=== PATIENT | female | born 1935 ===

== ENCOUNTER 2018-12-02 14:41 | Inpatient (IN) ==
[2018-12-02] MEDS ORDERED: *HR* FentaNYL (PF) 100 MCG/2 ML VIAL IVP ONE (15:02)
[2018-12-02] MEDS ORDERED: Ondansetron 4 MG/2 ML VIAL IVP ONE (15:02)
[2018-12-02 15:37] LABS: Bilirubin,Urine Negative (Negative); Blood,Urine Negative (Negative); Clarity,Urine Clear (Clear); Color,Urine Yellow (Yellow); Glucose,Urine (UA) Normal (Normal); Ketones,Urine Negative (Negative); Leukocyte Esterase,Urine Negative (Negative); Nitrite,Urine Negative (Negative); PH,Urine 6.5 pH Units (5.0-8.0); Protein,Urine Negative (Neg-Trace); Specific Gravity,Urine 1.012 (1.010-1.025); Urobilinogen,Urine Normal (Normal)
[2018-12-02 15:57] LABS: Alanine Aminotransferase 19 Units/L (7-52); Albumin/Globulin Ratio 1.3 (1.1-2.2); Alkaline Phosphatase 109 Units/L (34-104); Aspartate Amino Transferase 24 Units/L (13-39); BUN/Creatinine Ratio 15 (6-26); Bilirubin,Direct 0.1 mg/dL (0.0-0.2); Bilirubin,Indirect 0.7 mg/dL (0.0-1.2); Bilirubin,Total 0.8 mg/dL (0.3-1.0); Blood Urea Nitrogen 17 mg/dL (8-23); Calcium 9.7 mg/dL (8.6-10.3); Carbon Dioxide 26 mEq/L (23-29); Chloride 101 mEq/L (98-107); Globulin 3.1 g/dL (2.4-3.5); Glucose 126 mg/dL (70-105); Osmolality,Calculated 281 (280-300); Potassium 4.1 mEq/L (3.5-5.1); Sodium 134 mEq/L (136-145); Total Protein 7.1 g/dL (6.4-8.9); Troponin I < 0.03 ng/mL (< 0.04); eGFR For African Americans 54 (> 60); eGFR For Non-African Americans 45 (> 60)
[2018-12-02] MEDS ORDERED: *HR* OxyCODONE Immed Rel 5 MG TABLET PO ONE (16:41)
[2018-12-02 16:57] LABS: Basophils # 0.1 K/mcL (0.0-0.2); Basophils % 0.3 %; Eosinophils # 0.2 K/mcL (0.0-0.6); Eosinophils % 0.9 %; Hematocrit 23.7 % (35.3-44.9); Hemoglobin 8.7 g/dL (11.5-15.4); Immature Granulocytes % 4.2 % (0-4); Lymphocytes # 2.4 K/mcL (0.6-4.6); Lymphocytes % 14.9 %; Mean Corpuscular Hemoglobin 40.3 pg (28.0-33.3); Mean Corpuscular Volume 109.7 fL (83.0-100.0); Mean Platelet Volume 9.9 fL (9.4-12.4); Monocytes # 1.4 K/mcL (0.0-1.3); Monocytes % 8.8 %; Neutrophils # 11.4 K/mcL (1.6-8.9); Platelet Count 428 K/mcL (140-400); Red Blood Count 2.16 M/mcL (3.82-4.97); Red Cell Distribution Width 19.8 % (11.5-14.5); Segmented Neutrophils % 70.9 %
[2018-12-02 16:58] LABS: Mean Corpuscular HGB Conc 36.7 g/dL (31.6-35.5)
[2018-12-02] MEDS ORDERED: Naloxone 0.4 MG/ML INJ IVP PRN (17:03)
[2018-12-02] MEDS ORDERED: Dextrose Gel 15 GM/37.5 ML TUBE PO PRN ×2 (17:06)
[2018-12-02] MEDS ORDERED: D5% in Water 1,000 ML IVC PRN (17:06)
[2018-12-02] MEDS ORDERED: *HR* Dextrose 50 % in Water (Syg) 50 ML SYRINGE IVP PRN (17:06)
[2018-12-02] MEDS ORDERED: Ondansetron 4 MG/2 ML VIAL IVP PRN (17:13)
[2018-12-02 18:46] LABS: Estimated Average Glucose 91 mg/dl
[2018-12-02] MEDS ORDERED: Insulin DETEMIR 100 UNIT/ML X5UNITS SQ SCH (21:00)
[2018-12-02] MEDS: 0.9 % Sodium Chloride 1,000 ML IVC SCH (21:15)
[2018-12-02] MEDS: *HR* OxyCODONE/APAP 5/325 TABLET PO PRN (21:18)
[2018-12-03] MEDS: Insulin LISPRO 300 UNITS/3 ML VIAL SQ SCH ×5 (00:21→21:31)
[2018-12-03 03:39] LABS: Albumin 3.6 g/dL (3.5-5.7); Albumin/Globulin Ratio 1.4 (1.1-2.2); Bilirubin,Direct 0.2 mg/dL (0.0-0.2); Bilirubin,Indirect 0.9 mg/dL (0.0-1.2); Bilirubin,Total 1.1 mg/dL (0.3-1.0); Globulin 2.6 g/dL (2.4-3.5); Magnesium 1.6 mg/dL (1.6-2.6); Phosphorous 3.8 mg/dL (2.7-4.5); Total Protein 6.2 g/dL (6.4-8.9)
[2018-12-03 03:54] LABS: Basophils # 0.1 K/mcL (0.0-0.2); Basophils % 0.4 %; Eosinophils # 0.2 K/mcL (0.0-0.6); Eosinophils % 1.1 %; Hematocrit 21.7 % (35.3-44.9); Hemoglobin 7.8 g/dL (11.5-15.4); Immature Granulocytes % 2.3 % (0-4); Lymphocytes # 2.2 K/mcL (0.6-4.6); Lymphocytes % 13.7 %; Mean Corpuscular HGB Conc 35.9 g/dL (31.6-35.5); Mean Corpuscular Hemoglobin 39.8 pg (28.0-33.3); Mean Platelet Volume 9.6 fL (9.4-12.4); Monocytes # 1.5 K/mcL (0.0-1.3); Monocytes % 9.4 %; Neutrophils # 11.7 K/mcL (1.6-8.9); Platelet Count 364 K/mcL (140-400); Red Blood Count 1.96 M/mcL (3.82-4.97); Red Cell Distribution Width 19.2 % (11.5-14.5); Segmented Neutrophils % 73.1 %
[2018-12-03 04:25] LABS: Mean Corpuscular Volume 110.7 fL (83.0-100.0)
[2018-12-03 05:23] LABS: Macrocytosis Present (Not Present)
[2018-12-03 05:24] LABS: Anisocytosis 1+ (Not Present)
[2018-12-03] MEDS: Acetaminophen 325 MG TABLET PO PRN ×2 (05:24→21:16)
[2018-12-03] MEDS ORDERED: NON-FORMULARY MEDICATION 1 EACH EACH (Calcium Carbonate/Vitamin D3 [Calcium 500 + Vit D Ca PO SCH (09:00)
[2018-12-03] MEDS: Folic Acid 1 MG TABLET PO SCH (09:06)
[2018-12-03] MEDS: Cyanocobalamin (B-12) 1,000 MCG TABLET PO SCH (09:06)
[2018-12-03] MEDS: Anastrozole 1 MG TABLET PO SCH (09:06)
[2018-12-03] MEDS: Vitamin E 200 UNIT (90MG) CAPSULE PO SCH (09:06)
[2018-12-03] MEDS: *HR* OxyCODONE/APAP 5/325 TABLET PO PRN (09:07)
[2018-12-03] MEDS: Famotidine 20 MG TABLET PO SCH ×2 (09:07→21:16)
[2018-12-03] MEDS: 0.9 % Sodium Chloride 1,000 ML IVC SCH ×2 (09:08→21:21)
[2018-12-03] MEDS: Cholecalciferol (D-3) 1,000 UNIT (25MCG) TABLET PO SCH (09:25)
[2018-12-03 11:12] LABS: Hemoglobin 8.5 g/dL (11.5-15.4); Mean Corpuscular Hemoglobin 40.3 pg (28.0-33.3); Mean Corpuscular Volume 113.7 fL (83.0-100.0); Mean Platelet Volume 9.7 fL (9.4-12.4); Platelet Count 400 K/mcL (140-400); Red Blood Count 2.11 M/mcL (3.82-4.97); Red Cell Distribution Width 18.8 % (11.5-14.5); White Blood Count 14.7 K/mcL (4.3-11.1)
[2018-12-03 11:13] LABS: Mean Corpuscular HGB Conc 35.4 g/dL (31.6-35.5)
[2018-12-03] MEDS ORDERED: Isovue-370 500 ML BOTTLE IVP ONE (11:51)
[2018-12-03 12:10] LABS: Eosinophils # 0.6 K/mcL (0.0-0.6); Lymphocytes # 1.8 K/mcL (0.6-4.6); Monocytes # 1.5 K/mcL (0.0-1.3); Neutrophils # 10.9 K/mcL (1.6-8.9)
[2018-12-03 12:11] LABS: Platelet Estimate Normal (Normal)
[2018-12-03 12:24] LABS: Anisocytosis 1+ (Not Present)
[2018-12-03] MEDS: *HR* Heparin 5,000 UNIT/ML VIAL SQ SCH (17:02)
[2018-12-04] MEDS: *HR* Heparin 5,000 UNIT/ML VIAL SQ SCH ×2 (07:33→17:05)
[2018-12-04] MEDS: Vitamin E 200 UNIT (90MG) CAPSULE PO SCH (09:06)
[2018-12-04] MEDS: Famotidine 20 MG TABLET PO SCH ×2 (09:06→20:24)
[2018-12-04] MEDS: Anastrozole 1 MG TABLET PO SCH (09:06)
[2018-12-04] MEDS: Cyanocobalamin (B-12) 1,000 MCG TABLET PO SCH (09:06)
[2018-12-04] MEDS: Cholecalciferol (D-3) 1,000 UNIT (25MCG) TABLET PO SCH (09:06)
[2018-12-04] MEDS: Folic Acid 1 MG TABLET PO SCH (09:06)
[2018-12-04] MEDS: Insulin LISPRO 300 UNITS/3 ML VIAL SQ SCH ×4 (09:07→20:06)
[2018-12-04 10:16] LABS: Albumin 3.7 g/dL (3.5-5.7); Albumin/Globulin Ratio 1.3 (1.1-2.2); Bilirubin,Total 0.9 mg/dL (0.3-1.0); Globulin 2.9 g/dL (2.4-3.5); Potassium 4.2 mEq/L (3.5-5.1); Total Protein 6.6 g/dL (6.4-8.9)
[2018-12-04 12:43] LABS: Basophils # 0.1 K/mcL (0.0-0.2); Basophils % 0.5 %; Eosinophils # 0.4 K/mcL (0.0-0.6); Eosinophils % 2.4 %; Hematocrit 23.7 % (35.3-44.9); Immature Granulocytes % 1.9 % (0-4); Lymphocytes # 1.5 K/mcL (0.6-4.6); Lymphocytes % 9.6 %; Mean Corpuscular HGB Conc 33.8 g/dL (31.6-35.5); Mean Platelet Volume 9.6 fL (9.4-12.4); Monocytes # 1.5 K/mcL (0.0-1.3); Monocytes % 9.5 %; Neutrophils # 11.8 K/mcL (1.6-8.9); Platelet Count 364 K/mcL (140-400); Red Blood Count 2.16 M/mcL (3.82-4.97); Red Cell Distribution Width 14.8 % (11.5-14.5); Segmented Neutrophils % 76.1 %; White Blood Count 15.5 K/mcL (4.3-11.1)
[2018-12-04 12:45] LABS: Mean Corpuscular Volume 109.7 fL (83.0-100.0)
[2018-12-04] MEDS: 0.9 % Sodium Chloride 1,000 ML IVC SCH ×2 (15:17→19:21)
[2018-12-05] MEDS: 0.9 % Sodium Chloride 1,000 ML IVC SCH (02:46)
[2018-12-05 04:55] LABS: Hematocrit 21.7 % (35.3-44.9); Hemoglobin 7.6 g/dL (11.5-15.4); Immature Platelets 2.4 % (1.1-6.1); Mean Corpuscular Hemoglobin 39.8 pg (28.0-33.3); Mean Corpuscular Volume 113.6 fL (83.0-100.0); Mean Platelet Volume 10.3 fL (9.4-12.4); Red Blood Count 1.91 M/mcL (3.82-4.97); Red Cell Distribution Width 22.2 % (11.5-14.5); White Blood Count 16.1 K/mcL (4.3-11.1)
[2018-12-05] MEDS: *HR* Heparin 5,000 UNIT/ML VIAL SQ SCH (05:02)
[2018-12-05 06:29] LABS: BUN/Creatinine Ratio 16 (6-26); Blood Urea Nitrogen 17 mg/dL (8-23); Calcium 9.3 mg/dL (8.6-10.3); Carbon Dioxide 28 mEq/L (23-29); Chloride 105 mEq/L (98-107); Glucose 166 mg/dL (70-105); Osmolality,Calculated 287 (280-300); Potassium 4.1 mEq/L (3.5-5.1); Sodium 136 mEq/L (136-145); eGFR For African Americans > 60 (> 60); eGFR For Non-African Americans 51 (> 60)
[2018-12-05] MEDS: Insulin LISPRO 300 UNITS/3 ML VIAL SQ SCH ×2 (07:28→12:17)
[2018-12-05] MEDS: Cholecalciferol (D-3) 1,000 UNIT (25MCG) TABLET PO SCH (07:29)
[2018-12-05] MEDS: Cyanocobalamin (B-12) 1,000 MCG TABLET PO SCH (07:29)
[2018-12-05] MEDS: Famotidine 20 MG TABLET PO SCH (07:29)
[2018-12-05] MEDS: Folic Acid 1 MG TABLET PO SCH (07:29)
[2018-12-05] MEDS: Anastrozole 1 MG TABLET PO SCH (07:29)
[2018-12-05] MEDS: Vitamin E 200 UNIT (90MG) CAPSULE PO SCH (07:29)
[2018-12-05] MEDS ORDERED: Isovue-370 500 ML BOTTLE IVP ONE (09:32)
[2018-12-05 11:44] VITALS: BP 142/77
[2018-12-05] MEDS ORDERED: Aspirin 81 MG TAB.CHEW PO SCH (12:00)
== END 2018-12-05 15:28 | disposition home or self-care (01) | DRG 641 ==
LOC: 3BNU 14:41 → EMEROOARM 14:41 → SUATTDRO 18:32 → 3BNU 18:56
PROVIDERS: ADMIT Pharmacist; ATTEND Internal Medicine

== ENCOUNTER 2019-08-18 17:42 | Observation (INO) ==
[2019-08-18 19:21] LABS: BUN/Creatinine Ratio 21 (6-26); Blood Urea Nitrogen 18 mg/dL (8-23); Calcium 9.3 mg/dL (8.6-10.3); Carbon Dioxide 22 mEq/L (23-29); Chloride 103 mEq/L (98-107); Glucose 112 mg/dL (70-105); Osmolality,Calculated 287 (280-300); Potassium 5.3 mEq/L (3.5-5.1); Sodium 137 mEq/L (136-145); Troponin I < 0.03 ng/mL (< 0.04); eGFR For African Americans > 60 (> 60); eGFR For Non-African Americans > 60 (> 60)
[2019-08-18 19:32] LABS: Hematocrit 27.7 % (35.3-44.9); Hemoglobin 9.5 g/dL (11.5-15.4); Mean Corpuscular HGB Conc 34.3 g/dL (31.6-35.5); Mean Corpuscular Hemoglobin 37.1 pg (28.0-33.3); Mean Corpuscular Volume 108.2 fL (83.0-100.0); Red Blood Count 2.56 M/mcL (3.82-4.97); White Blood Count 16.6 K/mcL (4.3-11.1)
[2019-08-18 19:33] LABS: Mean Platelet Volume 10.9 fL (9.4-12.4); Platelet Count 361 K/mcL (140-400); Red Cell Distribution Width 20.1 % (11.5-14.5)
[2019-08-18 20:32] LABS: Bilirubin,Urine Negative (Negative); Blood,Urine Negative (Negative); Clarity,Urine Clear (Clear); Color,Urine Yellow (Yellow); Glucose,Urine (UA) Normal (Normal); Ketones,Urine Negative (Negative); Leukocyte Esterase,Urine Negative (Negative); Nitrite,Urine Negative (Negative); PH,Urine 6.5 pH Units (5.0-8.0); Protein,Urine 100 mg/dL (Neg-Trace); Specific Gravity,Urine 1.025 (1.010-1.025); Urobilinogen,Urine Normal (Normal)
[2019-08-18] MEDS ORDERED: 0.9 % Sodium Chloride 1,000 ML IVC ONE (21:02)
[2019-08-18 21:05] LABS: Bacteria,Urine None Seen per hpf (None-Few); RBC,Urine 0-3 per hpf (0-3); Squamous Epithelial Cell,Urine Few per lpf (None-Few); WBC,Urine 0-3 per hpf (0-3)
[2019-08-18 21:54] LABS: Creatine Kinase 34 Units/L (30-223)
[2019-08-19] MEDS ORDERED: Naloxone 0.4 MG/ML INJ IVP PRN (00:34)
[2019-08-19] MEDS ORDERED: *HR* Promethazine 25 MG/ML VIAL IVP PRN (00:34)
[2019-08-19] MEDS: *HR* Heparin 5,000 UNIT/ML VIAL SQ SCH ×3 (05:52→23:13)
[2019-08-19] MEDS: 0.9 % Sodium Chloride 1,000 ML IVC SCH ×2 (05:53→21:17)
[2019-08-19 06:58] LABS: Hematocrit 25.7 % (35.3-44.9); Hemoglobin 8.7 g/dL (11.5-15.4); Mean Corpuscular HGB Conc 33.9 g/dL (31.6-35.5); Mean Corpuscular Hemoglobin 36.1 pg (28.0-33.3); Mean Corpuscular Volume 106.6 fL (83.0-100.0); Platelet Count 365 K/mcL (140-400); Red Blood Count 2.41 M/mcL (3.82-4.97); Red Cell Distribution Width 20.5 % (11.5-14.5); White Blood Count 18.9 K/mcL (4.3-11.1)
[2019-08-19 07:01] LABS: BUN/Creatinine Ratio 17 (6-26); Blood Urea Nitrogen 15 mg/dL (8-23); Calcium 8.8 mg/dL (8.6-10.3); Carbon Dioxide 26 mEq/L (23-29); Chloride 102 mEq/L (98-107); Glucose 106 mg/dL (70-105); Magnesium 1.2 mg/dL (1.6-2.6); Osmolality,Calculated 285 (280-300); Potassium 4.1 mEq/L (3.5-5.1); Sodium 137 mEq/L (136-145); eGFR For African Americans > 60 (> 60); eGFR For Non-African Americans > 60 (> 60)
[2019-08-19] MEDS ORDERED: INSULN ASP SQ SCH (08:00)
[2019-08-19] MEDS ORDERED: INSULIN ASPART PROT SQ SCH (08:00)
[2019-08-19] MEDS: Cyanocobalamin (B-12) 1,000 MCG TABLET PO SCH (08:25)
[2019-08-19] MEDS: lisinopriL 10 MG TABLET PO SCH (08:25)
[2019-08-19] MEDS: Folic Acid 1 MG TABLET PO SCH (08:25)
[2019-08-19] MEDS: Anastrozole 1 MG TABLET PO SCH (08:25)
[2019-08-19] MEDS ORDERED: (Liraglutide [Victoza 2-Pak] 1.8 MG) SQ SCH (09:00)
[2019-08-19] MEDS ORDERED: D5% in Water 1,000 ML IVC PRN (11:46)
[2019-08-19] MEDS ORDERED: *HR* Dextrose 50 % in Water (Syg) 50 ML SYRINGE IVP PRN (11:46)
[2019-08-19] MEDS ORDERED: Dextrose Gel 15 GM/37.5 ML TUBE PO PRN ×2 (11:46)
[2019-08-19] MEDS ORDERED: Magnesium Sulfate 1 GM/102 ML PIGGYBACK IVPB ONE (12:19)
[2019-08-19] MEDS: Acetaminophen 325 MG TABLET PO PRN ×2 (16:20→21:17)
[2019-08-19] MEDS: Insulin LISPRO 300 UNITS/3 ML VIAL SQ SCH (17:59)
[2019-08-19] MEDS ORDERED: Famotidine 20 MG TABLET PO SCH (21:00)
[2019-08-20] MEDS: *HR* Heparin 5,000 UNIT/ML VIAL SQ SCH ×2 (05:44→14:20)
[2019-08-20 07:22] LABS: BUN/Creatinine Ratio 16 (6-26); Blood Urea Nitrogen 13 mg/dL (8-23); Calcium 8.9 mg/dL (8.6-10.3); Carbon Dioxide 24 mEq/L (23-29); Chloride 103 mEq/L (98-107); Glucose 202 mg/dL (70-105); Magnesium 1.6 mg/dL (1.6-2.6); Osmolality,Calculated 288 (280-300); Potassium 3.5 mEq/L (3.5-5.1); Sodium 136 mEq/L (136-145); eGFR For African Americans > 60 (> 60); eGFR For Non-African Americans > 60 (> 60)
[2019-08-20 09:12] LABS: Estimated Average Glucose 100 mg/dl
[2019-08-20] MEDS: Anastrozole 1 MG TABLET PO SCH (09:22)
[2019-08-20] MEDS: lisinopriL 10 MG TABLET PO SCH (09:22)
[2019-08-20] MEDS: Folic Acid 1 MG TABLET PO SCH (09:22)
[2019-08-20] MEDS: Cyanocobalamin (B-12) 1,000 MCG TABLET PO SCH (09:22)
[2019-08-20] MEDS: Insulin LISPRO 300 UNITS/3 ML VIAL SQ SCH ×2 (09:23→12:43)
[2019-08-20 11:17] LABS: Basophils # 0.1 K/mcL (0.0-0.2); Basophils % 0.6 %; Eosinophils # 0.2 K/mcL (0.0-0.6); Eosinophils % 1.2 %; Hematocrit 31.2 % (35.3-44.9); Hemoglobin 9.5 g/dL (11.5-15.4); Immature Granulocytes % 1.6 % (0-4); Lymphocytes % 11.4 %; Mean Corpuscular Volume 105.1 fL (83.0-100.0); Mean Platelet Volume 11.1 fL (9.4-12.4); Monocytes # 1.9 K/mcL (0.0-1.3); Monocytes % 11.3 %; Neutrophils # 12.7 K/mcL (1.6-8.9); Nucleated Red Blood Cells 0.2 /100 WBC (0); Platelet Count 367 K/mcL (140-400); Red Blood Count 2.97 M/mcL (3.82-4.97); Red Cell Distribution Width 17.7 % (11.5-14.5); Segmented Neutrophils % 73.9 %; White Blood Count 17.2 K/mcL (4.3-11.1)
[2019-08-20 11:23] LABS: Mean Corpuscular HGB Conc 30.4 g/dL (31.6-35.5)
[2019-08-20] MEDS ORDERED: lisinopriL 10 MG TABLET PO ONE (14:50)
[2019-08-20 16:42] VITALS: BP 158/79
[2019-08-21] MEDS ORDERED: lisinopriL 10 MG TABLET PO SCH (09:00)
== END 2019-08-20 17:58 | disposition other institution (70) ==
LOC: 3BNU 17:42 → EMEROOARM 17:42 → 3BNU 23:38
PROVIDERS: ADMIT Internal Medicine; ATTEND Internal Medicine

== ENCOUNTER 2019-09-26 12:18 | Observation (INO) ==
[2019-09-26 13:00] LABS: INR 1.1
[2019-09-26 13:09] LABS: Alanine Aminotransferase 25 Units/L (7-52); Albumin 4.4 g/dL (3.5-5.7); Albumin/Globulin Ratio 1.3 (1.1-2.2); Alkaline Phosphatase 111 Units/L (34-104); Aspartate Amino Transferase 38 Units/L (13-39); BUN/Creatinine Ratio 18 (6-26); Bilirubin,Total 1.8 mg/dL (0.3-1.0); Blood Urea Nitrogen 19 mg/dL (8-23); Calcium 9.1 mg/dL (8.6-10.3); Carbon Dioxide 24 mEq/L (23-29); Chloride 96 mEq/L (98-107); Globulin 3.3 g/dL (2.4-3.5); Glucose 156 mg/dL (70-105); Magnesium 1.4 mg/dL (1.6-2.6); Osmolality,Calculated 279 (280-300); Phosphorous 3.2 mg/dL (2.7-4.5); Potassium 3.9 mEq/L (3.5-5.1); Sodium 132 mEq/L (136-145); Total Protein 7.7 g/dL (6.4-8.9); Troponin I 0.03 ng/mL (< 0.04); eGFR For African Americans > 60 (> 60); eGFR For Non-African Americans 51 (> 60)
[2019-09-26 13:21] LABS: Thyroid Stimulating Hormone 4.518 mcIU/mL (0.340-5.600)
[2019-09-26 13:36] LABS: Bacteria,Urine Few per hpf (None-Few); Bilirubin,Urine Negative (Negative); Blood,Urine Negative (Negative); Clarity,Urine Clear (Clear); Color,Urine Yellow (Yellow); Glucose,Urine (UA) Normal (Normal); Ketones,Urine Negative (Negative); Leukocyte Esterase,Urine Trace (Negative); Mucus,Urine Few per lpf (None-Few); Nitrite,Urine Negative (Negative); Protein,Urine 200 mg/dL (Neg-Trace); RBC,Urine 0-3 per hpf (0-3); Specific Gravity,Urine 1.026 (1.010-1.025); Squamous Epithelial Cell,Urine Few per hpf (None-Few)
[2019-09-26 14:58] LABS: Basophils # 0.1 K/mcL (0.0-0.2); Basophils % 0.7 %; Eosinophils % 0.1 %; Hematocrit 28.3 % (35.3-44.9); Immature Granulocytes % 2.3 % (0-4); Lymphocytes # 1.4 K/mcL (0.6-4.6); Lymphocytes % 8.5 %; Mean Corpuscular Volume 100.7 fL (83.0-100.0); Mean Platelet Volume 11.1 fL (9.4-12.4); Monocytes # 2.2 K/mcL (0.0-1.3); Neutrophils # 11.9 K/mcL (1.6-8.9); Nucleated Red Blood Cells 0.2 /100 WBC (0); Platelet Count 279 K/mcL (140-400); Red Blood Count 2.81 M/mcL (3.82-4.97); Red Cell Distribution Width 16.1 % (11.5-14.5); Segmented Neutrophils % 74.4 %; White Blood Count 15.9 K/mcL (4.3-11.1)
[2019-09-26 15:03] LABS: Mean Corpuscular HGB Conc 31.8 g/dL (31.6-35.5)
[2019-09-26] MEDS ORDERED: 0.9 % Sodium Chloride 1,000 ML IVC ONE (15:08)
[2019-09-26] MEDS ORDERED: cefTRIAXone 1,000 MG in Water for inj. (sterile) 10 ML IVP ONE (15:08)
[2019-09-26] MEDS ORDERED: Acetaminophen 325 MG TABLET PO PRN (15:35)
[2019-09-26] MEDS ORDERED: Ondansetron 4 MG/2 ML VIAL IVP PRN (15:35)
[2019-09-26] MEDS: *HR* Metformin 500 MG TABLET PO SCH (18:42)
[2019-09-26] MEDS: Insulin NPH/REG 70/30 100 UNIT/ML (x5UNIT) SQ SCH (19:04)
[2019-09-27 01:12] LABS: BUN/Creatinine Ratio 20 (6-26); Blood Urea Nitrogen 20 mg/dL (8-23); Calcium 8.6 mg/dL (8.6-10.3); Carbon Dioxide 21 mEq/L (23-29); Chloride 102 mEq/L (98-107); Glucose 93 mg/dL (70-105); Magnesium 1.3 mg/dL (1.6-2.6); Osmolality,Calculated 282 (280-300); Potassium 3.6 mEq/L (3.5-5.1); Sodium 135 mEq/L (136-145); eGFR For African Americans > 60 (> 60); eGFR For Non-African Americans 54 (> 60)
[2019-09-27 03:45] LABS: Hematocrit 22.9 % (35.3-44.9); Hemoglobin 7.5 g/dL (11.5-15.4); Mean Corpuscular HGB Conc 32.8 g/dL (31.6-35.5); Mean Corpuscular Hemoglobin 34.9 pg (28.0-33.3); Platelet Count 462 K/mcL (140-400); Red Blood Count 2.15 M/mcL (3.82-4.97); Red Cell Distribution Width 17.2 % (11.5-14.5); White Blood Count 10.2 K/mcL (4.3-11.1)
[2019-09-27 03:47] LABS: Mean Corpuscular Volume 106.5 fL (83.0-100.0)
[2019-09-27] MEDS ORDERED: *HR* Enoxaparin 30 MG/0.3 ML SYRINGE SQ SCH (06:00)
[2019-09-27] MEDS: *HR* Metformin 500 MG TABLET PO SCH (08:36)
[2019-09-27] MEDS: Insulin NPH/REG 70/30 100 UNIT/ML (x5UNIT) SQ SCH (08:38)
[2019-09-27] MEDS ORDERED: cefTRIAXone 1,000 MG in Water for inj. (sterile) 10 ML IVP SCH (09:00)
[2019-09-27] MEDS ORDERED: lisinopriL 20 MG TABLET PO SCH (09:00)
[2019-09-27] MEDS ORDERED: Anastrozole 1 MG TABLET PO SCH (09:00)
[2019-09-27 10:25] VITALS: BP 116/60
== END 2019-09-27 12:46 | disposition home health service (06) ==
LOC: EMEROOARM 12:18 → 3ANU 12:18 → SUATTDRO 17:37 → 3ANU 17:45
PROVIDERS: ADMIT Internal Medicine; ATTEND Internal Medicine

== ENCOUNTER 2019-09-30 16:30 | Inpatient (IN) ==
[2019-09-30 17:29] LABS: INR 1.2; Prothrombin Time 13.9 Seconds (9.4-12.1)
[2019-09-30 17:32] LABS: Activated Partial Thrombo Time 27.3 Seconds (26.0-36.0)
[2019-09-30] MEDS ORDERED: Piperacillin/Tazobactam 3.375 GM in 0.9 % Sodium Chloride Mini Bag 100 ML IVPB ONE (17:42)
[2019-09-30] MEDS ORDERED: Azithromycin 500 MG in 0.9 % Sodium Chloride 250 ML IVPB ONE (17:44)
[2019-09-30 17:48] LABS: Alanine Aminotransferase 21 Units/L (7-52); Albumin 3.9 g/dL (3.5-5.7); Albumin/Globulin Ratio 1.3 (1.1-2.2); Alkaline Phosphatase 86 Units/L (34-104); Aspartate Amino Transferase 47 Units/L (13-39); BUN/Creatinine Ratio 18 (6-26); Bilirubin,Direct 0.3 mg/dL (0.0-0.2); Bilirubin,Indirect 0.6 mg/dL (0.0-1.0); Bilirubin,Total 0.9 mg/dL (0.3-1.0); Blood Urea Nitrogen 16 mg/dL (8-23); Calcium 8.6 mg/dL (8.6-10.3); Carbon Dioxide 24 mEq/L (23-29); Chloride 101 mEq/L (98-107); Creatine Kinase 54 Units/L (30-223); Glucose 161 mg/dL (70-105); Osmolality,Calculated 281 (280-300); Potassium 5.1 mEq/L (3.5-5.1); Sodium 133 mEq/L (136-145); Total Protein 6.9 g/dL (6.4-8.9); Troponin I 0.03 ng/mL (< 0.04); eGFR For African Americans > 60 (> 60); eGFR For Non-African Americans > 60 (> 60)
[2019-09-30 17:53] LABS: Bacteria,Urine Few per hpf (None-Few); Bilirubin,Urine Negative (Negative); Blood,Urine Trace (Negative); Clarity,Urine Clear (Clear); Color,Urine Yellow (Yellow); Glucose,Urine (UA) 50 mg/dL (Normal); Ketones,Urine Negative (Negative); Leukocyte Esterase,Urine Negative (Negative); Mucus,Urine Few per lpf (None-Few); Nitrite,Urine Negative (Negative); PH,Urine 5.5 pH Units (5.0-8.0); Protein,Urine 200 mg/dL (Neg-Trace); RBC,Urine 0-3 per hpf (0-3); Specific Gravity,Urine 1.024 (1.010-1.025); WBC,Urine 0-3 per hpf (0-3)
[2019-09-30 18:00] LABS: Thyroid Stimulating Hormone 3.663 mcIU/mL (0.340-5.600)
[2019-09-30] MEDS ORDERED: Piperacillin/Tazobactam 3.375 GM in Water for inj. (sterile) 20 ML IVP ONE (18:16)
[2019-09-30] MEDS ORDERED: Acetaminophen 325 MG TABLET PO ONE (18:28)
[2019-09-30 19:21] LABS: Adenovirus Not Detected (Not Detect); Bordetella Pertussis Not Detected (Not Detect); Chlamydophila pneumoniae Not Detected (Not Detect); Coronavirus 229E Not Detected (Not Detect); Coronavirus HKU1 Not Detected (Not Detect); Coronavirus NL63 Not Detected (Not Detect); Coronavirus OC43 Not Detected (Not Detect); Human Metapneumovirus Not Detected (Not Detect); Human Rhinovirus/Enterovirus Not Detected (Not Detect); Influenza A Subtype 2009 H1 Not Detected (Not Detect); Influenza B Not Detected (Not Detect); Mycoplasma pneumoniae Not Detected (Not Detect); Parainfluenza Virus 1 Not Detected (Not Detect); Parainfluenza Virus 2 Not Detected (Not Detect); Parainfluenza Virus 3 Not Detected (Not Detect); Parainfluenza Virus 4 Not Detected (Not Detect); Respiratory Syncytial Virus Not Detected (Not Detect)
[2019-09-30] MEDS ORDERED: 0.9 % Sodium Chloride 1,000 ML IVC SCH (19:45)
[2019-09-30] MEDS ORDERED: Naloxone 0.4 MG/ML INJ IVP PRN (19:46)
[2019-09-30 20:00] LABS: Basophils # 0.1 K/mcL (0.0-0.2); Basophils % 0.6 %; Eosinophils % 0.1 %; Hemoglobin 7.7 g/dL (11.5-15.4); Immature Granulocytes % 2.1 % (0-4); Lymphocytes # 1.6 K/mcL (0.6-4.6); Lymphocytes % 14.4 %; Mean Corpuscular HGB Conc 38.5 g/dL (31.6-35.5); Mean Corpuscular Hemoglobin 43.3 pg (28.0-33.3); Mean Corpuscular Volume 112.4 fL (83.0-100.0); Mean Platelet Volume 10.4 fL (9.4-12.4); Monocytes % 18.3 %; Neutrophils # 7.1 K/mcL (1.6-8.9); Nucleated Red Blood Cells 1.1 /100 WBC (0); Platelet Count 374 K/mcL (140-400); Red Blood Count 1.78 M/mcL (3.82-4.97); Red Cell Distribution Width 25.2 % (11.5-14.5); Segmented Neutrophils % 64.5 %
[2019-09-30] MEDS ORDERED: *HR* Dextrose 50 % in Water (Vial) 50 ML VIAL IVP PRN (20:00)
[2019-09-30] MEDS ORDERED: D5% in Water 1,000 ML IVC PRN (20:00)
[2019-09-30] MEDS ORDERED: Dextrose Gel 15 GM/37.5 ML TUBE PO PRN ×2 (20:00)
[2019-09-30 20:37] LABS: Toxic Vacuolation Present (Not Present)
[2019-09-30 20:38] LABS: Toxic Granulation Present (Not Present)
[2019-09-30 20:39] LABS: Anisocytosis 1+ (Not Present); Platelet Estimate Normal (Normal); Poikilocytosis 1+ (Not Present); Polychromasia 1+ (Not Present)
[2019-10-01] MEDS ORDERED: Insulin LISPRO 300 UNITS/3 ML VIAL SQ SCH
[2019-10-01] MEDS: Insulin LISPRO 300 UNITS/3 ML VIAL SQ SCH ×5 (01:35→21:07)
[2019-10-01] MEDS ORDERED: Piperacillin/Tazobactam 3.375 GM in 0.9 % Sodium Chloride Mini Bag 100 ML IVPB SCH (04:00)
[2019-10-01 05:22] LABS: INR 1.2; Prothrombin Time 13.6 Seconds (9.4-12.1)
[2019-10-01] MEDS: *HR* Enoxaparin 40 MG/0.4 ML SYRINGE SQ SCH ×2 (05:25→05:49)
[2019-10-01 05:37] LABS: Alanine Aminotransferase 18 Units/L (7-52); Albumin 3.5 g/dL (3.5-5.7); Albumin/Globulin Ratio 1.3 (1.1-2.2); Alkaline Phosphatase 72 Units/L (34-104); Aspartate Amino Transferase 37 Units/L (13-39); BUN/Creatinine Ratio 15 (6-26); Bilirubin,Total 0.8 mg/dL (0.3-1.0); Blood Urea Nitrogen 14 mg/dL (8-23); Carbon Dioxide 25 mEq/L (23-29); Chloride 105 mEq/L (98-107); Globulin 2.8 g/dL (2.4-3.5); Glucose 123 mg/dL (70-105); Osmolality,Calculated 284 (280-300); Potassium 4.5 mEq/L (3.5-5.1); Sodium 136 mEq/L (136-145); Total Protein 6.3 g/dL (6.4-8.9); eGFR For African Americans > 60 (> 60); eGFR For Non-African Americans 58 (> 60)
[2019-10-01 05:39] LABS: Troponin I 0.03 ng/mL (< 0.04)
[2019-10-01 05:53] LABS: Procalcitonin 0.22 ng/mL (0.00-0.15)
[2019-10-01 06:25] LABS: Basophils # 0.1 K/mcL (0.0-0.2); Basophils % 0.9 %; Eosinophils % 0.1 %; Hematocrit 20.5 % (35.3-44.9); Hemoglobin 6.8 g/dL (11.5-15.4); Immature Granulocytes % 1.6 % (0-4); Lymphocytes # 2.1 K/mcL (0.6-4.6); Lymphocytes % 23.1 %; Mean Corpuscular HGB Conc 33.2 g/dL (31.6-35.5); Mean Corpuscular Hemoglobin 35.6 pg (28.0-33.3); Mean Corpuscular Volume 107.3 fL (83.0-100.0); Mean Platelet Volume 10.2 fL (9.4-12.4); Monocytes # 1.9 K/mcL (0.0-1.3); Monocytes % 21.1 %; Neutrophils # 4.7 K/mcL (1.6-8.9); Nucleated Red Blood Cells 0.9 /100 WBC (0); Platelet Count 399 K/mcL (140-400); Red Blood Count 1.91 M/mcL (3.82-4.97); Red Cell Distribution Width 19.1 % (11.5-14.5); Segmented Neutrophils % 53.2 %; White Blood Count 8.9 K/mcL (4.3-11.1)
[2019-10-01] MEDS: Doxycycline 100 MG CAPSULE PO SCH ×2 (07:51→21:08)
[2019-10-01] MEDS ORDERED: cefTRIAXone 2,000 MG in Water for inj. (sterile) 20 ML IVP SCH (08:00)
[2019-10-01] MEDS ORDERED: Folic Acid 1 MG TABLET PO SCH (09:00)
[2019-10-01] MEDS ORDERED: cephALEXin 500 MG CAPSULE PO SCH (09:00)
[2019-10-01] MEDS ORDERED: lisinopriL 20 MG TABLET PO SCH (09:00)
[2019-10-01] MEDS ORDERED: Azithromycin 250 MG TABLET PO SCH (09:00)
[2019-10-01] MEDS: *HR* LORazepam 2 MG/ML VIAL IVP ONE ×2 (14:04→18:48)
[2019-10-01 14:29] LABS: Vitamin B12 > 1500 pg/mL (250-1100)
[2019-10-01 16:40] LABS: Bilirubin,Direct 0.2 mg/dL (0.0-0.2); Bilirubin,Indirect 0.6 mg/dL (0.0-1.0)
[2019-10-01] MEDS ORDERED: 0.9 % Sodium Chloride 250 ML ONE (17:53)
[2019-10-01] MEDS ORDERED: *HR* Heparin 5,000 UNIT/ML VIAL IVP ONE (18:01)
[2019-10-01] MEDS ORDERED: *HR* Heparin 5,000 UNIT/ML VIAL IVP PRN ×2 (18:01)
[2019-10-01] MEDS ORDERED: Heparin 25,000 UNIT/250 ML D5W 25,000 UNIT/250 ML IV.SOLN IVC SCH (18:15)
[2019-10-01] MEDS ORDERED: *HR* Metoprolol 5 MG/5 ML VIAL IVP ONE ×2 (22:00→22:12)
[2019-10-01] MEDS ORDERED: Furosemide 20 MG/2 ML VIAL IVP ONE (22:27)
[2019-10-01] MEDS ORDERED: Dexamethasone 4 MG/ML VIAL IVP ONE (22:57)
[2019-10-01] MEDS ORDERED: *HR* LORazepam 2 MG/ML VIAL IVP ONE (22:58)
[2019-10-01 23:25] LABS: INR 1.1; Prothrombin Time 12.6 Seconds (9.4-12.1)
[2019-10-02] MEDS ORDERED: *HR* LORazepam 2 MG/ML VIAL IVP ONE (02:14)
[2019-10-02 02:28] LABS: INR 1.3; Prothrombin Time 14.7 Seconds (9.4-12.1)
[2019-10-02 02:30] LABS: Activated Partial Thrombo Time 31.1 Seconds (26.0-36.0)
[2019-10-02 02:49] LABS: Calcium 8.2 mg/dL (8.6-10.3); Potassium 4.9 mEq/L (3.5-5.1)
[2019-10-02 02:50] LABS: C-Reactive Protein 62 mg/L (Less than 10)
[2019-10-02] MEDS ORDERED: *HR* Heparin 5,000 UNIT/ML VIAL IVP PRN ×3 (03:02→06:43)
[2019-10-02] MEDS ORDERED: *HR* Heparin 5,000 UNIT/ML VIAL IVP ONE (03:02)
[2019-10-02] MEDS ORDERED: Aspirin 325 MG TABLET PO ONE (03:04)
[2019-10-02 03:07] LABS: Ferritin > 1500 ng/mL (10-120)
[2019-10-02] MEDS ORDERED: Heparin 25,000 UNIT/250 ML D5W 25,000 UNIT/250 ML IV.SOLN IVC SCH ×2 (03:15→06:43)
[2019-10-02 03:26] LABS: Albumin 3.6 g/dL (3.5-5.7); Albumin/Globulin Ratio 1.2 (1.1-2.2); Bilirubin,Total 1.2 mg/dL (0.3-1.0); Calcium 8.1 mg/dL (8.6-10.3); Potassium 4.7 mEq/L (3.5-5.1); Total Protein 6.6 g/dL (6.4-8.9); Troponin I 1.58 ng/mL (< 0.04)
[2019-10-02 03:42] LABS: Mean Platelet Volume 10.8 fL (9.4-12.4); Nucleated Red Blood Cells 1.5 /100 WBC (0); Platelet Count 336 K/mcL (140-400); Red Cell Distribution Width 21.9 % (11.5-14.5); White Blood Count 29.4 K/mcL (4.3-11.1)
[2019-10-02 03:46] LABS: Mean Corpuscular Hemoglobin 31.4 pg (28.0-33.3); Mean Corpuscular Volume 98.1 fL (83.0-100.0)
[2019-10-02 03:47] LABS: Hematocrit 25.9 % (35.3-44.9); Hemoglobin 8.3 g/dL (11.5-15.4); Red Blood Count 2.64 M/mcL (3.82-4.97)
[2019-10-02 03:52] LABS: Anisocytosis 2+ (Not Present); Large Platelets Present (Not Present); Lymphocytes # 0.6 K/mcL (0.6-4.6); Macrocytosis Present (Not Present); Microcytosis Present (Not Present); Monocytes # 2.1 K/mcL (0.0-1.3); Neutrophils # 26.5 K/mcL (1.6-8.9); Platelet Estimate Normal (Normal)
[2019-10-02 03:53] LABS: Polychromasia 1+ (Not Present)
[2019-10-02] MEDS ORDERED: Perflutren Lipid Microsphere 1.3 ML in 0.9 % Sodium Chloride 8.7 ML IVP PRN (07:47)
[2019-10-02] MEDS ORDERED: Vancomycin 1 EACH in 0.9 % Sodium Chloride 250 ML IVPB PRN (08:00)
[2019-10-02] MEDS ORDERED: Piperacillin/Tazobactam 3.375 GM in 0.9 % Sodium Chloride Mini Bag 100 ML IVPB SCH (08:00)
[2019-10-02] MEDS ORDERED: Azithromycin 500 MG in 0.9 % Sodium Chloride 250 ML IVPB SCH (08:00)
[2019-10-02] MEDS ORDERED: Ergocalciferol (VIT D2) 50,000 UNIT (1.25MG) CAP PO SCH (09:00)
[2019-10-02] MEDS: Cefepime HCl 1,000 MG in Water for inj. (sterile) 10 ML IVP SCH ×2 (09:09→20:18)
[2019-10-02] MEDS: Insulin LISPRO 300 UNITS/3 ML VIAL SQ SCH ×4 (09:11→21:43)
[2019-10-02] MEDS: Dexamethasone 4 MG/ML VIAL IVP SCH (09:18)
[2019-10-02] MEDS: Heparin 25,000 UNIT/250 ML D5W 25,000 UNIT/250 ML IV.SOLN IVC SCH (11:57)
[2019-10-02] MEDS: Insulin DETEMIR 100 UNIT/ML X5UNITS SQ SCH (12:58)
[2019-10-02] MEDS: levoFLOXacin 750 MG/150 ML 750 MG/150 ML BAG IVPB SCH (14:10)
[2019-10-03] MEDS: *HR* Heparin 5,000 UNIT/ML VIAL IVP PRN (01:13)
[2019-10-03 03:53] LABS: Albumin 3.1 g/dL (3.5-5.7); Albumin/Globulin Ratio 1.1 (1.1-2.2); Bilirubin,Total 0.7 mg/dL (0.3-1.0); Calcium 7.7 mg/dL (8.6-10.3); Globulin 2.9 g/dL (2.4-3.5); Potassium 4.6 mEq/L (3.5-5.1)
[2019-10-03 04:12] LABS: Hematocrit 21.6 % (35.3-44.9); Hemoglobin 7.2 g/dL (11.5-15.4); Mean Corpuscular HGB Conc 33.3 g/dL (31.6-35.5); Mean Corpuscular Hemoglobin 34.6 pg (28.0-33.3); Mean Corpuscular Volume 103.8 fL (83.0-100.0); Mean Platelet Volume 11.1 fL (9.4-12.4); Platelet Count 315 K/mcL (140-400); Red Blood Count 2.08 M/mcL (3.82-4.97); Red Cell Distribution Width 16.4 % (11.5-14.5); White Blood Count 19.8 K/mcL (4.3-11.1)
[2019-10-03] MEDS ORDERED: 0.9 % Sodium Chloride 500 ML IVC ONE (07:39)
[2019-10-03] MEDS: Cefepime HCl 1,000 MG in Water for inj. (sterile) 10 ML IVP SCH (08:03)
[2019-10-03] MEDS: Dexamethasone 4 MG/ML VIAL IVP SCH (08:03)
[2019-10-03] MEDS: Aspirin 81 MG TAB.CHEW PO SCH (08:04)
[2019-10-03] MEDS: Anastrozole 1 MG TABLET PO SCH (08:25)
[2019-10-03] MEDS: Insulin LISPRO 300 UNITS/3 ML VIAL SQ SCH ×4 (08:25→20:46)
[2019-10-03] MEDS: Insulin DETEMIR 100 UNIT/ML X5UNITS SQ SCH (08:25)
[2019-10-03] MEDS ORDERED: Dexamethasone 4 MG/ML VIAL IVP ONE (09:28)
[2019-10-03] MEDS: Piperacillin/Tazobactam 3.375 GM in 0.9 % Sodium Chloride Mini Bag 100 ML IVPB SCH ×2 (10:36→17:55)
[2019-10-03 17:48] LABS: Heparin anti-factor XA UFH 0.37 IU/mL (0.30-0.70)
[2019-10-03] MEDS: Heparin 25,000 UNIT/250 ML D5W 25,000 UNIT/250 ML IV.SOLN IVC SCH (18:46)
[2019-10-04] MEDS: Piperacillin/Tazobactam 3.375 GM in 0.9 % Sodium Chloride Mini Bag 100 ML IVPB SCH ×3 (03:39→18:02)
[2019-10-04 05:37] LABS: Basophils # 0.1 K/mcL (0.0-0.2); Basophils % 0.2 %; Hematocrit 20.8 % (35.3-44.9); Hemoglobin 7.4 g/dL (11.5-15.4); Lymphocytes # 1.5 K/mcL (0.6-4.6); Lymphocytes % 5.4 %; Mean Corpuscular HGB Conc 35.6 g/dL (31.6-35.5); Mean Corpuscular Hemoglobin 38.5 pg (28.0-33.3); Monocytes % 7.5 %; Nucleated Red Blood Cells 2.7 /100 WBC (0); Platelet Count 395 K/mcL (140-400); Red Blood Count 1.92 M/mcL (3.82-4.97); Red Cell Distribution Width 25.8 % (11.5-14.5); Segmented Neutrophils % 83.9 %; White Blood Count 26.9 K/mcL (4.3-11.1)
[2019-10-04 05:38] LABS: Mean Corpuscular Volume 108.3 fL (83.0-100.0); Neutrophils # 22.6 K/mcL (1.6-8.9)
[2019-10-04] MEDS: Insulin LISPRO 300 UNITS/3 ML VIAL SQ SCH ×4 (07:49→20:04)
[2019-10-04] MEDS: Anastrozole 1 MG TABLET PO SCH (07:49)
[2019-10-04] MEDS: Dexamethasone 4 MG/ML VIAL IVP SCH (07:49)
[2019-10-04] MEDS: Aspirin 81 MG TAB.CHEW PO SCH (07:49)
[2019-10-04] MEDS: Acetaminophen 325 MG TABLET PO PRN (07:50)
[2019-10-04] MEDS: Insulin DETEMIR 100 UNIT/ML X5UNITS SQ SCH (07:50)
[2019-10-04] MEDS: Heparin 25,000 UNIT/250 ML D5W 25,000 UNIT/250 ML IV.SOLN IVC SCH (07:51)
[2019-10-04] MEDS: hydrALAZINE 25 MG TABLET PO SCH ×3 (08:01→23:54)
[2019-10-04 09:00] LABS: Albumin 3.3 g/dL (3.5-5.7); Albumin/Globulin Ratio 1.3 (1.1-2.2); Bilirubin,Total 1.3 mg/dL (0.3-1.0); Calcium 7.4 mg/dL (8.6-10.3); Globulin 2.6 g/dL (2.4-3.5); Potassium 3.6 mEq/L (3.5-5.1); Total Protein 5.9 g/dL (6.4-8.9)
[2019-10-04] MEDS ORDERED: Ringers Solution, Lactated 1,000 ML IVC ONE (10:24)
[2019-10-04] MEDS ORDERED: Vancomycin 1,250 MG/262.5 ML IV.SOLN IVPB ONE (10:45)
[2019-10-04] MEDS ORDERED: Aminoglycoside Consult 1 EACH MC ONE (10:58)
[2019-10-04] MEDS ORDERED: Vancomycin 1 EACH in 0.9 % Sodium Chloride 250 ML IVPB PRN (11:00)
[2019-10-04] MEDS ORDERED: 0.9 % Sodium Chloride 1,000 ML IVC ONE (11:47)
[2019-10-04] MEDS: levoFLOXacin 750 MG/150 ML 750 MG/150 ML BAG IVPB SCH (11:48)
[2019-10-04] MEDS ORDERED: 0.9 % Sodium Chloride 1,000 ML ONE (11:53)
[2019-10-04 15:19] LABS: Immature Reticulocyte % 26.3 % (11.0-38.0); Retculocyte # 0.03 M/mcL (0.05-0.10); Reticulocyte % 1.5 % (1.6-2.8)
[2019-10-04] MEDS ORDERED: *HR* LORazepam 2 MG/ML VIAL IVP ONE ×2 (18:00→20:35)
[2019-10-04] MEDS ORDERED: 0.9 % Sodium Chloride 500 ML IVC ONE (23:28)
[2019-10-05] MEDS ORDERED: *HR* Metoprolol 5 MG/5 ML VIAL IVP ONE (00:10)
[2019-10-05] MEDS ORDERED: *HR* LORazepam 2 MG/ML VIAL IVP ONE (00:28)
[2019-10-05] MEDS: *HR* Heparin 5,000 UNIT/ML VIAL IVP PRN (00:34)
[2019-10-05] MEDS: Piperacillin/Tazobactam 3.375 GM in 0.9 % Sodium Chloride Mini Bag 100 ML IVPB SCH ×3 (03:39→19:27)
[2019-10-05 04:44] LABS: Albumin 3.3 g/dL (3.5-5.7); Albumin/Globulin Ratio 1.1 (1.1-2.2); Bilirubin,Total 1.1 mg/dL (0.3-1.0); Calcium 7.6 mg/dL (8.6-10.3); Magnesium 1.4 mg/dL (1.6-2.6); Phosphorous 1.5 mg/dL (2.7-4.5); Potassium 4.3 mEq/L (3.5-5.1); Total Protein 6.3 g/dL (6.4-8.9)
[2019-10-05 05:16] LABS: Hematocrit 18.9 % (35.3-44.9); Hemoglobin 6.2 g/dL (11.5-15.4); Mean Corpuscular HGB Conc 32.8 g/dL (31.6-35.5); Mean Corpuscular Hemoglobin 34.8 pg (28.0-33.3); Mean Corpuscular Volume 106.2 fL (83.0-100.0); Mean Platelet Volume 11.1 fL (9.4-12.4); Platelet Count 335 K/mcL (140-400); Red Blood Count 1.78 M/mcL (3.82-4.97); Red Cell Distribution Width 19.3 % (11.5-14.5); White Blood Count 27.6 K/mcL (4.3-11.1)
[2019-10-05] MEDS: Insulin LISPRO 300 UNITS/3 ML VIAL SQ SCH ×4 (08:38→21:49)
[2019-10-05] MEDS: Dexmedetomidine HCl 400 MCG/100 ML MLS IVC SCH (08:40)
[2019-10-05] MEDS: Dexamethasone 4 MG/ML VIAL IVP SCH (08:47)
[2019-10-05] MEDS ORDERED: 0.9 % Sodium Chloride 500 ML ONE (08:58)
[2019-10-05] MEDS: hydrALAZINE 25 MG TABLET PO SCH (09:35)
[2019-10-05] MEDS: Aspirin 81 MG TAB.CHEW PO SCH (09:38)
[2019-10-05] MEDS: Insulin DETEMIR 100 UNIT/ML X5UNITS SQ SCH (09:41)
[2019-10-05] MEDS ORDERED: Remdesivir 200 MG in 0.9 % Sodium Chloride 210 ML IVPB SCH (18:00)
[2019-10-05] MEDS: *HR* Heparin 5,000 UNIT/ML VIAL SQ SCH (18:57)
[2019-10-06] MEDS: Dexmedetomidine HCl 400 MCG/100 ML MLS IVC SCH (01:33)
[2019-10-06] MEDS: Piperacillin/Tazobactam 3.375 GM in 0.9 % Sodium Chloride Mini Bag 100 ML IVPB SCH ×2 (02:18→15:37)
[2019-10-06 04:31] LABS: INR 1.4; Prothrombin Time 16.3 Seconds (9.4-12.1)
[2019-10-06] MEDS: *HR* Heparin 5,000 UNIT/ML VIAL SQ SCH (04:41)
[2019-10-06 04:46] LABS: Bilirubin,Total 1.2 mg/dL (0.3-1.0); Calcium 7.3 mg/dL (8.6-10.3); Potassium 3.6 mEq/L (3.5-5.1)
[2019-10-06 04:59] LABS: Magnesium 2.5 mg/dL (1.6-2.6); Phosphorous 4.6 mg/dL (2.7-4.5)
[2019-10-06 05:05] LABS: Mean Corpuscular HGB Conc 34.5 g/dL (31.6-35.5); Mean Corpuscular Hemoglobin 38.1 pg (28.0-33.3); Mean Corpuscular Volume 110.4 fL (83.0-100.0); Mean Platelet Volume 11.3 fL (9.4-12.4); Platelet Count 356 K/mcL (140-400); Red Blood Count 1.34 M/mcL (3.82-4.97); Red Cell Distribution Width 22.4 % (11.5-14.5)
[2019-10-06 05:11] LABS: Hematocrit 14.8 % (35.3-44.9); Hemoglobin 5.1 g/dL (11.5-15.4); White Blood Count 31.8 K/mcL (4.3-11.1)
[2019-10-06] MEDS: Dexamethasone 4 MG/ML VIAL IVP SCH (08:07)
[2019-10-06] MEDS: Insulin DETEMIR 100 UNIT/ML X5UNITS SQ SCH (08:09)
[2019-10-06] MEDS: Aspirin 81 MG TAB.CHEW PO SCH (08:10)
[2019-10-06 08:16] LABS: Hematocrit 16.2 % (35.3-44.9)
[2019-10-06 08:23] LABS: Hemoglobin 5.2 g/dL (11.5-15.4)
[2019-10-06] MEDS: Insulin LISPRO 300 UNITS/3 ML VIAL SQ SCH ×3 (08:32→19:24)
[2019-10-06] MEDS ORDERED: 0.9 % Sodium Chloride 250 ML IVC SCH (10:45)
[2019-10-06] MEDS: levoFLOXacin 750 MG/150 ML 750 MG/150 ML BAG IVPB SCH (11:22)
[2019-10-06 12:00] LABS: Immunoglobulin A 383 mg/dL (68-408); Immunoglobulin G 977 mg/dL (768-1632); Immunoglobulin M 123 mg/dL (35-263)
[2019-10-06] MEDS ORDERED: 0.9 % Sodium Chloride 500 ML ONE ×2 (12:38→13:45)
[2019-10-06] MEDS: Acetaminophen 325 MG TABLET PO PRN (14:40)
[2019-10-06] MEDS ORDERED: Remdesivir 100 MG in 0.9 % Sodium Chloride 230 ML IVPB SCH (18:00)
[2019-10-06 21:20] LABS: Hematocrit 22.1 % (35.3-44.9); Mean Corpuscular Hemoglobin 32.7 pg (28.0-33.3); Mean Platelet Volume 10.8 fL (9.4-12.4); Platelet Count 379 K/mcL (140-400); Red Blood Count 2.14 M/mcL (3.82-4.97); Red Cell Distribution Width 17.1 % (11.5-14.5)
[2019-10-06 21:22] LABS: Mean Corpuscular Volume 103.3 fL (83.0-100.0)
[2019-10-06 21:24] LABS: Mean Corpuscular HGB Conc 31.7 g/dL (31.6-35.5)
[2019-10-07] MEDS: Insulin LISPRO 300 UNITS/3 ML VIAL SQ SCH ×5 (04:04→20:51)
[2019-10-07] MEDS: Piperacillin/Tazobactam 3.375 GM in 0.9 % Sodium Chloride Mini Bag 100 ML IVPB SCH ×2 (04:36→16:44)
[2019-10-07 05:22] LABS: Bilirubin,Urine Negative (Negative); Blood,Urine Moderate (Negative); Clarity,Urine Turbid (Clear); Color,Urine Yellow (Yellow); Glucose,Urine (UA) Normal (Normal); Ketones,Urine Negative (Negative); Leukocyte Esterase,Urine Negative (Negative); Nitrite,Urine Negative (Negative); Protein,Urine 100 mg/dL (Neg-Trace); Specific Gravity,Urine 1.029 (1.010-1.025); Urobilinogen,Urine Normal (Normal)
[2019-10-07 05:23] LABS: INR 1.4; Prothrombin Time 16.3 Seconds (9.4-12.1)
[2019-10-07 05:36] LABS: Albumin 2.8 g/dL (3.5-5.7); Bilirubin,Total 0.9 mg/dL (0.3-1.0); Calcium 6.8 mg/dL (8.6-10.3); Globulin 2.9 g/dL (2.4-3.5); Potassium 3.8 mEq/L (3.5-5.1); Total Protein 5.7 g/dL (6.4-8.9)
[2019-10-07 05:43] LABS: RBC,Urine 0-3 per hpf (0-3)
[2019-10-07 05:44] LABS: Amorphous Sediment,Urine Many per hpf (None-Few); Bacteria,Urine None Seen per hpf (None-Few)
[2019-10-07 05:45] LABS: Hyaline Casts,Urine Few per lpf (None Seen); Squamous Epithelial Cell,Urine Few per hpf (None-Few); Uric Acid Crystals,Urine Present
[2019-10-07 06:50] LABS: Hematocrit 20.2 % (35.3-44.9); Hemoglobin 6.5 g/dL (11.5-15.4); Mean Corpuscular HGB Conc 32.2 g/dL (31.6-35.5); Mean Corpuscular Volume 105.8 fL (83.0-100.0); Mean Platelet Volume 11.2 fL (9.4-12.4); Platelet Count 413 K/mcL (140-400); Red Blood Count 1.91 M/mcL (3.82-4.97); Red Cell Distribution Width 19.6 % (11.5-14.5); White Blood Count 26.3 K/mcL (4.3-11.1)
[2019-10-07] MEDS: Dexamethasone 4 MG/ML VIAL IVP SCH (08:04)
[2019-10-07] MEDS: Insulin DETEMIR 100 UNIT/ML X5UNITS SQ SCH (08:06)
[2019-10-07] MEDS ORDERED: 0.9 % Sodium Chloride 250 ML ONE (13:48)
[2019-10-07] MEDS: Dexmedetomidine HCl 400 MCG/100 ML MLS IVC SCH ×2 (23:15)
[2019-10-08] MEDS: Piperacillin/Tazobactam 3.375 GM in 0.9 % Sodium Chloride Mini Bag 100 ML IVPB SCH ×2 (03:51→16:43)
[2019-10-08 04:00] LABS: INR 1.3; Prothrombin Time 14.3 Seconds (9.4-12.1)
[2019-10-08 04:04] LABS: Albumin 2.8 g/dL (3.5-5.7); Albumin/Globulin Ratio 0.9 (1.1-2.2); Bilirubin,Total 1.1 mg/dL (0.3-1.0); Potassium 3.8 mEq/L (3.5-5.1); Total Protein 5.8 g/dL (6.4-8.9)
[2019-10-08 04:07] LABS: Hematocrit 27.1 % (35.3-44.9); Hemoglobin 9.3 g/dL (11.5-15.4); Mean Corpuscular HGB Conc 34.3 g/dL (31.6-35.5); Mean Corpuscular Hemoglobin 35.6 pg (28.0-33.3); Mean Corpuscular Volume 103.8 fL (83.0-100.0); Platelet Count 412 K/mcL (140-400); Red Blood Count 2.61 M/mcL (3.82-4.97); Red Cell Distribution Width 21.4 % (11.5-14.5); White Blood Count 24.5 K/mcL (4.3-11.1)
[2019-10-08] MEDS: Insulin LISPRO 300 UNITS/3 ML VIAL SQ SCH ×4 (07:42→20:26)
[2019-10-08] MEDS ORDERED: 0.9 % Sodium Chloride 1,000 ML IVC SCH (07:45)
[2019-10-08] MEDS: Dexamethasone 4 MG/ML VIAL IVP SCH (08:50)
[2019-10-08] MEDS: Insulin DETEMIR 100 UNIT/ML X5UNITS SQ SCH (08:51)
[2019-10-09] MEDS: Piperacillin/Tazobactam 3.375 GM in 0.9 % Sodium Chloride Mini Bag 100 ML IVPB SCH ×3 (04:06→23:56)
[2019-10-09 04:36] LABS: Bilirubin,Total 1.2 mg/dL (0.3-1.0); Calcium 7.8 mg/dL (8.6-10.3); Globulin 3.1 g/dL (2.4-3.5); Potassium 3.5 mEq/L (3.5-5.1); Total Protein 6.1 g/dL (6.4-8.9)
[2019-10-09 04:36] LABS: INR 1.2; Prothrombin Time 13.5 Seconds (9.4-12.1)
[2019-10-09 04:45] LABS: Hematocrit 25.4 % (35.3-44.9)
[2019-10-09 04:47] LABS: Hemoglobin 9.8 g/dL (11.5-15.4); Mean Corpuscular Hemoglobin 40.8 pg (28.0-33.3); Mean Corpuscular Volume 105.8 fL (83.0-100.0); Mean Platelet Volume 10.8 fL (9.4-12.4); Platelet Count 467 K/mcL (140-400); Red Cell Distribution Width 25.3 % (11.5-14.5); White Blood Count 23.8 K/mcL (4.3-11.1)
[2019-10-09 04:53] LABS: Mean Corpuscular HGB Conc 38.6 g/dL (31.6-35.5)
[2019-10-09] MEDS: Insulin LISPRO 300 UNITS/3 ML VIAL SQ SCH ×4 (07:45→20:41)
[2019-10-09] MEDS: Dexamethasone 4 MG/ML VIAL IVP SCH (07:48)
[2019-10-09] MEDS: Insulin DETEMIR 100 UNIT/ML X5UNITS SQ SCH (07:48)
[2019-10-09] MEDS: Acetaminophen 325 MG TABLET PO PRN (08:06)
[2019-10-09] MEDS ORDERED: 0.9 % Sodium Chloride 1,000 ML IVC SCH (10:45)
[2019-10-09] MEDS: Melatonin 3 MG TABLET PO SCH (20:03)
[2019-10-09] MEDS: *HR* Metoprolol 5 MG/5 ML VIAL IVP PRN (20:48)
[2019-10-10] MEDS: *HR* Metoprolol 5 MG/5 ML VIAL IVP PRN (03:30)
[2019-10-10 03:54] LABS: INR 1.1
[2019-10-10 04:11] LABS: Albumin 2.9 g/dL (3.5-5.7); Albumin/Globulin Ratio 1.1 (1.1-2.2); Bilirubin,Total 1.5 mg/dL (0.3-1.0); Calcium 7.8 mg/dL (8.6-10.3); Globulin 2.7 g/dL (2.4-3.5); Potassium 2.9 mEq/L (3.5-5.1); Total Protein 5.6 g/dL (6.4-8.9)
[2019-10-10 05:04] LABS: Hematocrit 24.8 % (35.3-44.9); Hemoglobin 8.6 g/dL (11.5-15.4); Mean Corpuscular HGB Conc 34.7 g/dL (31.6-35.5); Mean Corpuscular Hemoglobin 35.7 pg (28.0-33.3); Mean Platelet Volume 10.7 fL (9.4-12.4); Platelet Count 436 K/mcL (140-400); Red Blood Count 2.41 M/mcL (3.82-4.97); Red Cell Distribution Width 21.9 % (11.5-14.5); White Blood Count 20.9 K/mcL (4.3-11.1)
[2019-10-10 05:07] LABS: Mean Corpuscular Volume 102.9 fL (83.0-100.0)
[2019-10-10] MEDS: Insulin LISPRO 300 UNITS/3 ML VIAL SQ SCH ×4 (08:22→20:03)
[2019-10-10] MEDS: Piperacillin/Tazobactam 3.375 GM in 0.9 % Sodium Chloride Mini Bag 100 ML IVPB SCH ×2 (09:22→17:05)
[2019-10-10] MEDS: Dexamethasone 4 MG/ML VIAL IVP SCH (09:23)
[2019-10-10] MEDS: amLODIPine 5 MG TABLET PO SCH (09:23)
[2019-10-10] MEDS: Insulin DETEMIR 100 UNIT/ML X5UNITS SQ SCH (09:25)
[2019-10-10] MEDS: Dexmedetomidine HCl 400 MCG/100 ML MLS IVC SCH (18:29)
[2019-10-10] MEDS: Melatonin 3 MG TABLET PO SCH (20:02)
[2019-10-11] MEDS: Piperacillin/Tazobactam 3.375 GM in 0.9 % Sodium Chloride Mini Bag 100 ML IVPB SCH ×4 (00:04→23:47)
[2019-10-11 02:40] LABS: INR 1.1
[2019-10-11 03:00] LABS: Albumin 2.9 g/dL (3.5-5.7); Bilirubin,Total 1.4 mg/dL (0.3-1.0); Calcium 8.6 mg/dL (8.6-10.3); Globulin 2.8 g/dL (2.4-3.5); Potassium 3.9 mEq/L (3.5-5.1); Total Protein 5.7 g/dL (6.4-8.9)
[2019-10-11 03:04] LABS: Hematocrit 22.9 % (35.3-44.9); Hemoglobin 8.3 g/dL (11.5-15.4); Mean Corpuscular HGB Conc 36.2 g/dL (31.6-35.5); Mean Corpuscular Hemoglobin 38.1 pg (28.0-33.3); Mean Platelet Volume 10.5 fL (9.4-12.4); Platelet Count 407 K/mcL (140-400); Red Blood Count 2.18 M/mcL (3.82-4.97); Red Cell Distribution Width 24.1 % (11.5-14.5)
[2019-10-11] MEDS ORDERED: *HR* LORazepam 2 MG/ML VIAL IVP STA ×2 (06:00→06:18)
[2019-10-11] MEDS ORDERED: 0.9 % Sodium Chloride 1,000 ML IVC SCH (07:45)
[2019-10-11] MEDS: Dexamethasone 4 MG/ML VIAL IVP SCH ×2 (07:50→08:59)
[2019-10-11] MEDS: amLODIPine 5 MG TABLET PO SCH (07:50)
[2019-10-11] MEDS: Insulin LISPRO 300 UNITS/3 ML VIAL SQ SCH ×4 (08:56→20:09)
[2019-10-11] MEDS: Insulin DETEMIR 100 UNIT/ML X5UNITS SQ SCH (09:00)
[2019-10-11] MEDS ORDERED: Haloperidol Lactate 5 MG/ML VIAL IVP ONE ×2 (11:35→19:43)
[2019-10-12 02:41] LABS: INR 1.2; Prothrombin Time 13.4 Seconds (9.4-12.1)
[2019-10-12 02:53] LABS: Hematocrit 23.6 % (35.3-44.9); Hemoglobin 8.4 g/dL (11.5-15.4); Mean Corpuscular HGB Conc 35.6 g/dL (31.6-35.5); Mean Corpuscular Hemoglobin 37.3 pg (28.0-33.3); Mean Corpuscular Volume 104.9 fL (83.0-100.0); Mean Platelet Volume 10.6 fL (9.4-12.4); Platelet Count 426 K/mcL (140-400); Red Blood Count 2.25 M/mcL (3.82-4.97); White Blood Count 17.9 K/mcL (4.3-11.1)
[2019-10-12 02:56] LABS: Alanine Aminotransferase 38 Units/L (7-52); Albumin 2.9 g/dL (3.5-5.7); Alkaline Phosphatase 65 Units/L (34-104); Aspartate Amino Transferase 31 Units/L (13-39); BUN/Creatinine Ratio 14 (6-26); Bilirubin,Total 1.5 mg/dL (0.3-1.0); Blood Urea Nitrogen 14 mg/dL (8-23); Calcium 8.4 mg/dL (8.6-10.3); Carbon Dioxide 24 mEq/L (23-29); Chloride 107 mEq/L (98-107); Glucose 90 mg/dL (70-105); Osmolality,Calculated 292 (280-300); Potassium 3.7 mEq/L (3.5-5.1); Sodium 141 mEq/L (136-145); Total Protein 5.9 g/dL (6.4-8.9); eGFR For African Americans > 60 (> 60); eGFR For Non-African Americans 52 (> 60)
[2019-10-12] MEDS: *HR* Metoprolol 5 MG/5 ML VIAL IVP PRN (05:36)
[2019-10-12] MEDS: Piperacillin/Tazobactam 3.375 GM in 0.9 % Sodium Chloride Mini Bag 100 ML IVPB SCH ×2 (08:28→16:43)
[2019-10-12] MEDS: amLODIPine 5 MG TABLET PO SCH (08:29)
[2019-10-12] MEDS: Insulin LISPRO 300 UNITS/3 ML VIAL SQ SCH ×4 (08:29→20:14)
[2019-10-12] MEDS: Dexamethasone 4 MG/ML VIAL IVP SCH (08:29)
[2019-10-12] MEDS: Insulin DETEMIR 100 UNIT/ML X5UNITS SQ SCH (08:55)
[2019-10-12] MEDS: lisinopriL 20 MG TABLET PO SCH (11:52)
[2019-10-13] MEDS: Piperacillin/Tazobactam 3.375 GM in 0.9 % Sodium Chloride Mini Bag 100 ML IVPB SCH (00:03)
[2019-10-13 04:47] LABS: INR 1.2; Prothrombin Time 13.2 Seconds (9.4-12.1)
[2019-10-13 04:55] LABS: Albumin 2.7 g/dL (3.5-5.7); Albumin/Globulin Ratio 0.9 (1.1-2.2); Bilirubin,Total 1.2 mg/dL (0.3-1.0); Calcium 8.7 mg/dL (8.6-10.3); Globulin 2.9 g/dL (2.4-3.5); Potassium 3.1 mEq/L (3.5-5.1); Total Protein 5.6 g/dL (6.4-8.9)
[2019-10-13 05:12] LABS: Hematocrit 23.3 % (35.3-44.9); Hemoglobin 7.4 g/dL (11.5-15.4); Mean Corpuscular HGB Conc 31.8 g/dL (31.6-35.5); Mean Corpuscular Hemoglobin 31.6 pg (28.0-33.3); Mean Corpuscular Volume 99.6 fL (83.0-100.0); Mean Platelet Volume 10.4 fL (9.4-12.4); Platelet Count 391 K/mcL (140-400); Red Blood Count 2.34 M/mcL (3.82-4.97); Red Cell Distribution Width 18.4 % (11.5-14.5); White Blood Count 13.5 K/mcL (4.3-11.1)
[2019-10-13] MEDS ORDERED: Haloperidol Lactate 5 MG/ML VIAL IVP STA ×2 (07:09→20:44)
[2019-10-13] MEDS: Insulin LISPRO 300 UNITS/3 ML VIAL SQ SCH ×4 (08:12→21:51)
[2019-10-13] MEDS: amLODIPine 5 MG TABLET PO SCH (12:56)
[2019-10-13] MEDS: lisinopriL 20 MG TABLET PO SCH (12:56)
[2019-10-13] MEDS: Insulin DETEMIR 100 UNIT/ML X5UNITS SQ SCH (12:56)
[2019-10-13 13:48] LABS: Hematocrit 24.7 % (35.3-44.9); Hemoglobin 8.2 g/dL (11.5-15.4); Mean Corpuscular HGB Conc 33.2 g/dL (31.6-35.5); Mean Corpuscular Hemoglobin 34.2 pg (28.0-33.3); Mean Platelet Volume 10.6 fL (9.4-12.4); Platelet Count 446 K/mcL (140-400); Red Cell Distribution Width 21.1 % (11.5-14.5); White Blood Count 20.3 K/mcL (4.3-11.1)
[2019-10-13 13:50] LABS: Mean Corpuscular Volume 102.9 fL (83.0-100.0)
[2019-10-14 06:04] LABS: INR 1.2; Prothrombin Time 13.1 Seconds (9.4-12.1)
[2019-10-14 06:29] LABS: Hemoglobin 7.7 g/dL (11.5-15.4); Mean Corpuscular Hemoglobin 36.5 pg (28.0-33.3); Mean Corpuscular Volume 104.3 fL (83.0-100.0); Mean Platelet Volume 11.4 fL (9.4-12.4); Platelet Count 303 K/mcL (140-400); Red Blood Count 2.11 M/mcL (3.82-4.97); Red Cell Distribution Width 24.2 % (11.5-14.5); White Blood Count 15.1 K/mcL (4.3-11.1)
[2019-10-14] MEDS: Piperacillin/Tazobactam 3.375 GM in 0.9 % Sodium Chloride Mini Bag 100 ML IVPB SCH (06:52)
[2019-10-14] MEDS: Insulin LISPRO 300 UNITS/3 ML VIAL SQ SCH ×4 (09:22→20:43)
[2019-10-14 09:23] LABS: Alanine Aminotransferase 22 Units/L (7-52); Albumin 2.9 g/dL (3.5-5.7); Albumin/Globulin Ratio 0.9 (1.1-2.2); Alkaline Phosphatase 71 Units/L (34-104); Aspartate Amino Transferase 28 Units/L (13-39); BUN/Creatinine Ratio 19 (6-26); Blood Urea Nitrogen 18 mg/dL (8-23); Calcium 8.8 mg/dL (8.6-10.3); Carbon Dioxide 27 mEq/L (23-29); Chloride 105 mEq/L (98-107); Globulin 3.2 g/dL (2.4-3.5); Glucose 78 mg/dL (70-105); Osmolality,Calculated 287 (280-300); Potassium 4.7 mEq/L (3.5-5.1); Sodium 138 mEq/L (136-145); Total Protein 6.1 g/dL (6.4-8.9); eGFR For African Americans > 60 (> 60); eGFR For Non-African Americans 55 (> 60)
[2019-10-14] MEDS: Insulin DETEMIR 100 UNIT/ML X5UNITS SQ SCH (09:25)
[2019-10-14] MEDS: lisinopriL 20 MG TABLET PO SCH (09:25)
[2019-10-14] MEDS: amLODIPine 5 MG TABLET PO SCH (09:25)
[2019-10-14] MEDS ORDERED: amLODIPine 5 MG TABLET PO ONE (11:47)
[2019-10-14] MEDS ORDERED: *HR* Labetalol 20 MG/4 ML SYRINGE IVP PRN (11:48)
[2019-10-15] MEDS ORDERED: Melatonin 3 MG TABLET PO PRN (00:12)
[2019-10-15 05:46] LABS: INR 1.2; Prothrombin Time 13.2 Seconds (9.4-12.1)
[2019-10-15 06:01] LABS: Alanine Aminotransferase 17 Units/L (7-52); Albumin 2.9 g/dL (3.5-5.7); Alkaline Phosphatase 67 Units/L (34-104); Aspartate Amino Transferase 19 Units/L (13-39); BUN/Creatinine Ratio 18 (6-26); Bilirubin,Total 0.8 mg/dL (0.3-1.0); Blood Urea Nitrogen 19 mg/dL (8-23); Calcium 8.8 mg/dL (8.6-10.3); Carbon Dioxide 29 mEq/L (23-29); Chloride 104 mEq/L (98-107); Glucose 92 mg/dL (70-105); Osmolality,Calculated 290 (280-300); Potassium 3.8 mEq/L (3.5-5.1); Sodium 139 mEq/L (136-145); Total Protein 5.9 g/dL (6.4-8.9); eGFR For African Americans > 60 (> 60); eGFR For Non-African Americans 51 (> 60)
[2019-10-15 06:34] LABS: Hematocrit 20.6 % (35.3-44.9); Hemoglobin 7.1 g/dL (11.5-15.4); Mean Corpuscular HGB Conc 34.5 g/dL (31.6-35.5); Mean Corpuscular Hemoglobin 36.2 pg (28.0-33.3); Mean Corpuscular Volume 105.1 fL (83.0-100.0); Mean Platelet Volume 10.5 fL (9.4-12.4); Platelet Count 437 K/mcL (140-400); Red Blood Count 1.96 M/mcL (3.82-4.97); Red Cell Distribution Width 23.2 % (11.5-14.5); White Blood Count 15.5 K/mcL (4.3-11.1)
[2019-10-15] MEDS: Insulin LISPRO 300 UNITS/3 ML VIAL SQ SCH ×2 (07:48→12:02)
[2019-10-15] MEDS: lisinopriL 20 MG TABLET PO SCH (07:48)
[2019-10-15] MEDS: Insulin DETEMIR 100 UNIT/ML X5UNITS SQ SCH (07:48)
[2019-10-15] MEDS ORDERED: amLODIPine 5 MG TABLET PO SCH (09:00)
[2019-10-15 11:48] VITALS: BP 140/63
[2019-10-16] MEDS ORDERED: Insulin DETEMIR 100 UNIT/ML X5UNITS SQ SCH (09:00)
== END 2019-10-15 17:07 | DRG 871 ==
LOC: 2NENU 16:30 → EMEROOARM 16:30 → 2NENU 20:25 → SUATTDRO 10-01 14:16
PROVIDERS: ADMIT Internal Medicine; ATTEND Student in an Organized Health Care Education/Training Program

== ENCOUNTER 2019-10-26 00:25 | Inpatient (IN) ==
[2019-10-26 01:44] LABS: Activated Partial Thrombo Time 29.7 Seconds (26.0-36.0)
[2019-10-26 02:07] LABS: Alanine Aminotransferase 12 Units/L (7-52); Albumin/Globulin Ratio 0.7 (1.1-2.2); Alkaline Phosphatase 81 Units/L (34-104); Aspartate Amino Transferase 29 Units/L (13-39); BUN/Creatinine Ratio 17 (6-26); Bilirubin,Total 0.7 mg/dL (0.3-1.0); Blood Urea Nitrogen 18 mg/dL (8-23); Calcium 8.2 mg/dL (8.6-10.3); Carbon Dioxide 24 mEq/L (23-29); Chloride 104 mEq/L (98-107); Globulin 4.1 g/dL (2.4-3.5); Glucose 71 mg/dL (70-105); Osmolality,Calculated 286 (280-300); Potassium 5.4 mEq/L (3.5-5.1); Sodium 138 mEq/L (136-145); Total Protein 7.1 g/dL (6.4-8.9); eGFR For African Americans > 60 (> 60); eGFR For Non-African Americans 50 (> 60)
[2019-10-26 02:08] LABS: Troponin I 0.09 ng/mL (< 0.04)
[2019-10-26] MEDS ORDERED: Isovue-370 500 ML BOTTLE IVP ONE (02:08)
[2019-10-26 02:10] LABS: Basophils # 0.1 K/mcL (0.0-0.2); Basophils % 0.3 %; Eosinophils # 0.1 K/mcL (0.0-0.6); Eosinophils % 0.4 %; Hematocrit 19.7 % (35.3-44.9); Hemoglobin 8.2 g/dL (11.5-15.4); Immature Granulocytes % 1.2 % (0-4); Lymphocytes # 0.6 K/mcL (0.6-4.6); Lymphocytes % 3.2 %; Mean Corpuscular HGB Conc 41.6 g/dL (31.6-35.5); Mean Corpuscular Hemoglobin 45.6 pg (28.0-33.3); Mean Corpuscular Volume 109.4 fL (83.0-100.0); Mean Platelet Volume 10.2 fL (9.4-12.4); Monocytes # 1.1 K/mcL (0.0-1.3); Monocytes % 5.8 %; Neutrophils # 16.2 K/mcL (1.6-8.9); Platelet Count 407 K/mcL (140-400); Red Cell Distribution Width 29.2 % (11.5-14.5); Segmented Neutrophils % 89.1 %; White Blood Count 18.2 K/mcL (4.3-11.1)
[2019-10-26] MEDS ORDERED: Piperacillin/Tazobactam 3.375 GM in Water for inj. (sterile) 20 ML IVP ONE (03:54)
[2019-10-26 04:09] LABS: ABG Base Excess 3 mEq/L (-2 to 3); ABG HCO3 26 mEq/L (21-27); ABG Oxygen Saturation 97 % (95-98); ABG PCO2 33 mmHg (35-45); ABG PO2 81 mmHg (85-104); ABG TCO2 27 mEq/L (20-26)
[2019-10-26 04:09] LABS: Ferritin 618 ng/mL (10-120)
[2019-10-26] MEDS ORDERED: Naloxone 0.4 MG/ML INJ IVP PRN (04:55)
[2019-10-26] MEDS: Dexamethasone 4 MG/ML VIAL IVP SCH ×2 (06:22→09:26)
[2019-10-26] MEDS ORDERED: D5% in Water 1,000 ML IVC PRN (06:46)
[2019-10-26] MEDS ORDERED: Dextrose Gel 15 GM/37.5 ML TUBE PO PRN ×2 (06:46)
[2019-10-26] MEDS ORDERED: *HR* Dextrose 50 % in Water (Vial) 50 ML VIAL IVP PRN (06:46)
[2019-10-26 06:51] LABS: Bacteria,Urine Few per hpf (None-Few); Bilirubin,Urine Negative (Negative); Blood,Urine Negative (Negative); Clarity,Urine Clear (Clear); Color,Urine Light-Yellow (Yellow); Glucose,Urine (UA) Normal (Normal); Ketones,Urine Negative (Negative); Leukocyte Esterase,Urine Small (Negative); Mucus,Urine Few per lpf (None-Few); Nitrite,Urine Negative (Negative); Protein,Urine 70 mg/dL (Neg-Trace); Specific Gravity,Urine > 1.030 (1.010-1.025); Squamous Epithelial Cell,Urine Few per hpf (None-Few); Urobilinogen,Urine Normal (Normal)
[2019-10-26] MEDS: Insulin LISPRO 300 UNITS/3 ML VIAL SQ SCH ×4 (09:32→21:20)
[2019-10-26] MEDS: Piperacillin/Tazobactam 3.375 GM in 0.9 % Sodium Chloride Mini Bag 100 ML IVPB SCH ×2 (09:32→16:59)
[2019-10-26 10:27] LABS: Magnesium 1.4 mg/dL (1.6-2.6); Phosphorous 3.2 mg/dL (2.7-4.5); Potassium 4.2 mEq/L (3.5-5.1)
[2019-10-26 10:34] LABS: Troponin I 0.05 ng/mL (< 0.04)
[2019-10-26] MEDS ORDERED: Furosemide 20 MG/2 ML VIAL IVP ONE (11:19)
[2019-10-26] MEDS ORDERED: *HR* Enoxaparin 40 MG/0.4 ML SYRINGE SQ SCH ×2 (11:30→18:00)
[2019-10-26 12:19] LABS: Basophils % 0.2 %; Immature Granulocytes % 1.2 % (0-4); Lymphocytes # 0.5 K/mcL (0.6-4.6); Lymphocytes % 3.4 %; Mean Platelet Volume 10.2 fL (9.4-12.4); Monocytes # 0.7 K/mcL (0.0-1.3); Monocytes % 4.3 %; Neutrophils # 14.1 K/mcL (1.6-8.9); Platelet Count 417 K/mcL (140-400); Red Cell Distribution Width 27.2 % (11.5-14.5); Segmented Neutrophils % 90.9 %; White Blood Count 15.5 K/mcL (4.3-11.1)
[2019-10-26] MEDS: Cyanocobalamin (B-12) 1,000 MCG TABLET PO SCH (12:25)
[2019-10-26] MEDS: *HR* Enoxaparin 60 MG/0.6 ML SYRINGE SQ SCH ×2 (12:29→19:48)
[2019-10-26 12:39] LABS: Hematocrit 20.5 % (35.3-44.9); Mean Corpuscular Volume 97.6 fL (83.0-100.0)
[2019-10-26 12:40] LABS: Mean Corpuscular Hemoglobin 29.5 pg (28.0-33.3)
[2019-10-26 12:42] LABS: Hemoglobin 6.2 g/dL (11.5-15.4); Mean Corpuscular HGB Conc 30.2 g/dL (31.6-35.5)
[2019-10-26] MEDS: Anastrozole 1 MG TABLET PO SCH (14:59)
[2019-10-26] MEDS ORDERED: *HR* Heparin 5,000 UNIT/ML VIAL SQ SCH (18:00)
[2019-10-26 18:26] LABS: INR 1.4; Prothrombin Time 15.7 Seconds (9.4-12.1)
[2019-10-26 18:28] LABS: Activated Partial Thrombo Time 34.7 Seconds (26.0-36.0)
[2019-10-26 18:53] LABS: Hematocrit 20.1 % (35.3-44.9)
[2019-10-26 18:54] LABS: Hemoglobin 7.1 g/dL (11.5-15.4)
[2019-10-27] MEDS: Piperacillin/Tazobactam 3.375 GM in 0.9 % Sodium Chloride Mini Bag 100 ML IVPB SCH ×3 (01:42→18:10)
[2019-10-27 05:06] LABS: Fibrinogen 601 mg/dL (169-393)
[2019-10-27 05:07] LABS: D-Dimer 6260 ng/mLFEU (0-500)
[2019-10-27 05:18] LABS: Calcium 8.3 mg/dL (8.6-10.3); Potassium 3.4 mEq/L (3.5-5.1)
[2019-10-27 05:25] LABS: Basophils # 0.1 K/mcL (0.0-0.2); Basophils % 0.6 %; Eosinophils # 0.6 K/mcL (0.0-0.6); Eosinophils % 3.5 %; Hemoglobin 6.8 g/dL (11.5-15.4); Immature Granulocytes % 1.5 % (0-4); Lymphocytes # 1.4 K/mcL (0.6-4.6); Lymphocytes % 7.9 %; Mean Corpuscular HGB Conc 35.8 g/dL (31.6-35.5); Mean Platelet Volume 10.1 fL (9.4-12.4); Monocytes # 2.2 K/mcL (0.0-1.3); Monocytes % 12.1 %; Neutrophils # 13.5 K/mcL (1.6-8.9); Platelet Count 489 K/mcL (140-400); Red Blood Count 1.79 M/mcL (3.82-4.97); Red Cell Distribution Width 24.2 % (11.5-14.5); Segmented Neutrophils % 74.4 %; White Blood Count 18.1 K/mcL (4.3-11.1)
[2019-10-27 05:28] LABS: Mean Corpuscular Volume 106.1 fL (83.0-100.0)
[2019-10-27 05:49] LABS: Anisocytosis 1+ (Not Present); Platelet Estimate Normal (Normal); Polychromasia 1+ (Not Present)
[2019-10-27 05:50] LABS: Poikilocytosis 1+ (Not Present)
[2019-10-27] MEDS: Cyanocobalamin (B-12) 1,000 MCG TABLET PO SCH (08:38)
[2019-10-27] MEDS: Anastrozole 1 MG TABLET PO SCH (08:38)
[2019-10-27] MEDS: Folic Acid 1 MG TABLET PO SCH (08:38)
[2019-10-27] MEDS: lisinopriL 20 MG TABLET PO SCH (08:39)
[2019-10-27] MEDS: Cholecalciferol (D-3) 1,000 UNIT (25MCG) TABLET PO SCH (08:39)
[2019-10-27] MEDS: Dexamethasone 4 MG/ML VIAL IVP SCH (08:41)
[2019-10-27] MEDS: Insulin LISPRO 300 UNITS/3 ML VIAL SQ SCH ×4 (09:06→21:32)
[2019-10-27] MEDS: Furosemide 20 MG/2 ML VIAL IVP SCH (12:12)
[2019-10-27] MEDS: Doxycycline 100 MG in 0.9 % Sodium Chloride Mini Bag 100 ML IVPB SCH ×2 (15:21→18:09)
[2019-10-27] MEDS: Haloperidol Lactate 5 MG/ML VIAL IVP PRN (18:10)
[2019-10-27] MEDS: Melatonin 3 MG TABLET PO PRN (21:24)
[2019-10-28] MEDS: Piperacillin/Tazobactam 3.375 GM in 0.9 % Sodium Chloride Mini Bag 100 ML IVPB SCH ×2 (01:12→11:34)
[2019-10-28] MEDS: *HR* Enoxaparin 40 MG/0.4 ML SYRINGE SQ SCH (05:13)
[2019-10-28] MEDS: Doxycycline 100 MG in 0.9 % Sodium Chloride Mini Bag 100 ML IVPB SCH ×2 (05:14→16:46)
[2019-10-28 05:52] LABS: Fibrinogen 628 mg/dL (169-393)
[2019-10-28 05:59] LABS: Calcium 8.2 mg/dL (8.6-10.3); Potassium 3.9 mEq/L (3.5-5.1)
[2019-10-28 06:08] LABS: D-Dimer 14352 ng/mLFEU (0-500)
[2019-10-28 06:50] LABS: Basophils # 0.1 K/mcL (0.0-0.2); Basophils % 0.3 %; Eosinophils # 0.8 K/mcL (0.0-0.6); Hematocrit 18.7 % (35.3-44.9); Hemoglobin 6.8 g/dL (11.5-15.4); Immature Granulocytes % 1.5 % (0-4); Lymphocytes # 1.8 K/mcL (0.6-4.6); Lymphocytes % 9.5 %; Mean Corpuscular HGB Conc 36.4 g/dL (31.6-35.5); Mean Corpuscular Hemoglobin 39.8 pg (28.0-33.3); Mean Corpuscular Volume 109.4 fL (83.0-100.0); Monocytes # 2.4 K/mcL (0.0-1.3); Monocytes % 12.6 %; Neutrophils # 13.9 K/mcL (1.6-8.9); Nucleated Red Blood Cells 0.1 /100 WBC (0); Platelet Count 482 K/mcL (140-400); Red Blood Count 1.71 M/mcL (3.82-4.97); Segmented Neutrophils % 72.1 %; White Blood Count 19.3 K/mcL (4.3-11.1)
[2019-10-28 07:09] LABS: Anisocytosis 1+ (Not Present); Platelet Estimate Normal (Normal); Poikilocytosis 1+ (Not Present); Polychromasia 1+ (Not Present)
[2019-10-28] MEDS ORDERED: *HR* Metoprolol 5 MG/5 ML VIAL IVP ONE (07:55)
[2019-10-28] MEDS: Furosemide 20 MG/2 ML VIAL IVP SCH (08:06)
[2019-10-28] MEDS: Dexamethasone 4 MG/ML VIAL IVP SCH (08:07)
[2019-10-28] MEDS: Cyanocobalamin (B-12) 1,000 MCG TABLET PO SCH (08:08)
[2019-10-28] MEDS: lisinopriL 20 MG TABLET PO SCH (08:08)
[2019-10-28] MEDS: Anastrozole 1 MG TABLET PO SCH (08:08)
[2019-10-28] MEDS: Cholecalciferol (D-3) 1,000 UNIT (25MCG) TABLET PO SCH (08:08)
[2019-10-28] MEDS: Folic Acid 1 MG TABLET PO SCH (08:08)
[2019-10-28] MEDS: Insulin LISPRO 300 UNITS/3 ML VIAL SQ SCH ×4 (08:11→20:35)
[2019-10-28 13:24] LABS: Hematocrit 19.3 % (35.3-44.9)
[2019-10-28] MEDS: Melatonin 3 MG TABLET PO PRN (20:34)
[2019-10-28] MEDS: Cefepime HCl 1,000 MG in Water for inj. (sterile) 10 ML IVP SCH (20:34)
[2019-10-28] MEDS: Doxycycline 100 MG CAPSULE PO SCH (20:35)
[2019-10-28] MEDS ORDERED: Cefepime HCl 2,000 MG in Water for inj. (sterile) 20 ML IVP SCH (21:00)
[2019-10-29] MEDS: Haloperidol Lactate 5 MG/ML VIAL IVP PRN (00:23)
[2019-10-29] MEDS ORDERED: *HR* Metoprolol 5 MG/5 ML VIAL IVP ONE (01:41)
[2019-10-29] MEDS ORDERED: Haloperidol Lactate 5 MG/ML VIAL IVP ONE (05:21)
[2019-10-29] MEDS: *HR* Enoxaparin 40 MG/0.4 ML SYRINGE SQ SCH (05:24)
[2019-10-29] MEDS: Insulin LISPRO 300 UNITS/3 ML VIAL SQ SCH ×3 (08:26→16:52)
[2019-10-29] MEDS ORDERED: Morphine Sulfate 2 MG/ML SYRINGE IVP STA (08:55)
[2019-10-29] MEDS ORDERED: Dexmedetomidine HCl 400 MCG/100 ML MLS IVC SCH (09:00)
[2019-10-29] MEDS: Folic Acid 1 MG TABLET PO SCH (09:37)
[2019-10-29] MEDS: Cyanocobalamin (B-12) 1,000 MCG TABLET PO SCH (09:37)
[2019-10-29] MEDS: Cholecalciferol (D-3) 1,000 UNIT (25MCG) TABLET PO SCH (09:37)
[2019-10-29] MEDS: Anastrozole 1 MG TABLET PO SCH (09:37)
[2019-10-29] MEDS: Cefepime HCl 1,000 MG in Water for inj. (sterile) 10 ML IVP SCH (09:45)
[2019-10-29] MEDS: Dexamethasone 4 MG/ML VIAL IVP SCH (09:45)
[2019-10-29] MEDS ORDERED: Doxycycline 100 MG in 0.9 % Sodium Chloride Mini Bag 100 ML IVPB SCH (10:00)
[2019-10-29] MEDS ORDERED: *HR* FentaNYL (PF) 100 MCG/2 ML VIAL IVP PRN (12:23)
[2019-10-29] MEDS: Doxycycline 100 MG CAPSULE PO SCH (12:31)
[2019-10-29] MEDS ORDERED: Haloperidol Oral Conc 10 MG/5 ML UDC PO SCH (15:00)
[2019-10-29 17:22] LABS: Calcium 7.9 mg/dL (8.6-10.3); Potassium 4.6 mEq/L (3.5-5.1)
[2019-10-29 19:26] VITALS: BP 96/59
[2019-10-29 19:49] LABS: Basophils % 0.2 %; Hematocrit 18.9 % (35.3-44.9); Hemoglobin 6.1 g/dL (11.5-15.4); Lymphocytes # 0.7 K/mcL (0.6-4.6); Lymphocytes % 3.3 %; Mean Corpuscular HGB Conc 32.3 g/dL (31.6-35.5); Mean Corpuscular Hemoglobin 34.5 pg (28.0-33.3); Mean Corpuscular Volume 106.8 fL (83.0-100.0); Mean Platelet Volume 10.5 fL (9.4-12.4); Monocytes # 0.9 K/mcL (0.0-1.3); Monocytes % 4.1 %; Neutrophils # 19.2 K/mcL (1.6-8.9); Platelet Count 377 K/mcL (140-400); Red Blood Count 1.77 M/mcL (3.82-4.97); Red Cell Distribution Width 21.7 % (11.5-14.5); Segmented Neutrophils % 90.4 %; White Blood Count 21.2 K/mcL (4.3-11.1)
[2019-10-29] MEDS ORDERED: Insulin DETEMIR 100 UNIT/ML X5UNITS SQ SCH (21:00)
[2019-10-30] MEDS ORDERED: *HR* Enoxaparin 30 MG/0.3 ML SYRINGE SQ SCH (06:00)
== END 2019-10-29 20:30 | disposition expired | DRG 871 ==
LOC: EMEROOARM 00:25 → 2NENU 00:25 → SUATTDRO 12:38
PROVIDERS: ADMIT Student in an Organized Health Care Education/Training Program; ATTEND Family Medicine